=== PATIENT | male | born 1955 | race Caucasian/White ===

== ENCOUNTER 2022-10-04 15:48 | Outpatient (CLI) | payer MEDICARE, SELFPAY | END 2022-10-04 15:49 | disposition home or self-care (01) | PROVIDERS: PCP Family Medicine; Visit Provider Family Medicine | DX: E13.9 Other specified diabetes mellitus without complications (principal); I10 Essential (primary) hypertension; Z12.5 Encounter for screening for malignant neoplasm of prostate | CPT/HCPCS: 80053; 84153 ==

== ENCOUNTER 2023-04-19 15:31 | Outpatient (CLI) | payer MEDICARE, SELFPAY | END 2023-04-19 15:32 | disposition home or self-care (01) | LOC: LKVREF 15:32 | PROVIDERS: PCP Family Medicine; Visit Provider Family Medicine | DX: I10 Essential (primary) hypertension (principal) | CPT/HCPCS: 80048 ==

== ENCOUNTER 2023-06-29 13:10 | Emergency (ER) | payer MEDICARE, SELFPAY ==
[2023-06-29] VITALS (7 sets, daily range): BP systolic 123–169; BP diastolic 73–103; PULSE 74–79; RESP 12–20; TEMP 37.2; O2SAT 92–97; BMI 37.0
--- NOTE | 2023-06-29 14:01 | XR_ITS ---
Patient: KRANTHI KIM Facility:?[facility] Patient ID:?[id number] Site Patient ID:?[id number]. Site :?[id number] Study:?XRay-Chest 2 VIEW-06/29/2023 2:31:38 PM Ordering Physician:CADE Final Report: Indication: Shortness of breath. Technique: Two view(s) of the chest. Comparison: None available. Findings: Normal cardiomediastinal silhouette and pulmonary vasculature. Elevated left hemidiaphragm. No focal consolidation, pleural effusion or pneumothorax. No acute osseous abnormality. Chronic appearing anterior wedging of mid thoracic vertebral bodies. Impression: No acute cardiopulmonary abnormality identified. Dictated by Lashon Becerra MD @ 06/29/2023 2:47:03 PM Signed by:?Lashon Becerra MD @06/29/2023 2:47:03 PM (Electronic Signature)
[2023-06-29 14:05] LABS: Strep A DNA Probe* NOT DETECTED (Not Detectd)
[2023-06-29 14:16] LABS: PCR FLU A Negative PCR FLU A (Negative); PCR FLU B Negative PCR FLU B (Negative); PCR RSV Negative PCR RSV (Negative); SARS PCR* Negative SARS-CoV-2 (Negative)
--- NOTE | 2023-06-29 14:30 | ED_ITS ---
HPI - General Adult General Date Seen: 06/29/23 Chief complaint: Cough Stated complaint: Cold symptoms Time Seen by Provider: 06/29/23 13:21 Source: patient Mode of arrival: ambulatory Limitations: no limitations History of Present Illness HPI narrative: Patient is a 67-year-old male presenting for cold symptoms that started yesterday. States these include runny nose, cough, congestion. Has been taking ibuprofen cold medicine last took 3 hours ago. Has felt sweaty. Denies chest pain, fevers, chills, abdominal pain, nausea/vomiting, weakness, numbness, headaches, vision changes. Does state he feels slightly fatigued though. Did have family members around in the does have positive flu influenza 2 weeks ago. No other complaints at this time. States he does feel very mildly short of breath. No other concerns noted Related Data Home Medications Medication Instructions Recorded Confirmed aspirin 81 mg tablet,delayed 81 mg PO QDAY 04/19/23 06/29/23 release (Adult Aspirin Regimen) Previous Rx's Medication Instructions Recorded furosemide 20 mg tablet See Rx Instructions PO BID #180 10/04/22 tabs gabapentin 300 mg capsule 300 mg PO QHS #90 caps 10/04/22 glipizide 10 mg tablet, extended 10 mg PO QDAY #90 tabs 10/05/22 release 24 hr atorvastatin 20 mg tablet 20 mg PO QHS #90 tabs 11/04/22 blood sugar diagnostic (Accu-Chek #100 ea 11/04/22 Guide test strips) lisinopril 20 mg tablet 20 mg PO BID #180 tabs 11/04/22 metformin 500 mg tablet,extended 1,000 mg (2 x 500 mg) PO QDAY #180 11/04/22 release 24hr (osmotic) tabs spironolactone 25 mg tablet 25 mg PO BID #180 tabs 11/04/22 cyclobenzaprine 10 mg tablet 10 mg PO 3XD PRN for muscle spasm 03/07/23 #30 tabs gabapentin 100 mg capsule See Rx Instructions PO .ud #180 04/19/23 caps tamsulosin 0.4 mg capsule 0.4 mg PO QDAY #90 caps 04/19/23 Allergies Allergy/AdvReac Type Severity Reaction Status Date / Time No Known Drug Allergies Allergy Verified 06/29/23 13:22 Review of Systems Status of ROS: Reports: 10 or more systems reviewed and unremarkable except as noted in History and below [facility] Medical History Shingles ?B02.9 - Zoster without complications (ICD-10) Surgical History Status post nasal septoplasty ?Z98.890 - Other specified postprocedural states (ICD-10) Status post right inguinal hernia repair ?Z98.890 - Other specified postprocedural states (ICD-10) ?Z87.19 - Personal history of other diseases of the digestive system (ICD-10) Social History Little interest or pleasure in doing things: not at all Feeling down, depressed, or hopeless: not at all Exam Narrative: Exam Narrative: Const: Well-nourished, Well-developed, in mild distress Eyes: PERRL, no conjunctival injection, and symmetrical lids HENT: Atraumatic external nose and ears. Moist mucous membranes. Neck: Symmetric, trachea midline, No thyromegaly. CVS: RRR, No murmurs or gallops. Peripheral pulses 2+ and equal in all extremities RESP: Unlabored respiratory effort. Clear to auscultation bilaterally. GI: Nontender/Nondistended, No rebound or guarding. MSK:Extremities w/o deformity, Normal Active ROM Skin: Warm, Dry. No rashes or lesions. Neuro: Normal Muscle tone, No focal neurological deficits. Psych: Awake, Alert, & Oriented x3. Appropriate mood and affect. Const: Vital Signs, click to edit/add: Vital Signs - 24 hr 06/29/23 13:20 06/29/23 13:22 06/29/23 13:23 Temperature 99.0 F Pulse Rate 76 Pulse Rate [Pulse Oximeter] 76 Respiratory Rate 20 Blood Pressure 161/103 H Blood Pressure [Ri ght Upper Arm] 169/101 H Pulse Oximetry 95 93 Oxygen Delivery Me thod Room Air 06/29/23 13:23 Temperature Pulse Rate 77 Pulse Rate [Pulse Oximeter] Respiratory Rate Blood Pressure 135/80 Blood Pressure [Ri ght Upper Arm] Pulse Oximetry 93 Oxygen Delivery Me thod Course Vital Signs Vital signs: Initial Vital Signs Blood Pressure 161/103 H 06/29/23 13:20 Blood Pressure Mean 122 H 06/29/23 13:20 Vital Signs Blood Pressure 161/103 H 06/29/23 13:20 Temperature 99.0 F 06/29/23 13:23 Pulse Rate 76 06/29/23 13:23 Respiratory Rate 20 06/29/23 13:23 Blood Pressure 169/101 H 06/29/23 13:23 Pulse Oximetry 93 06/29/23 13:23 Oxygen Delivery Method Room Air 06/29/23 13:23 Medical Decision Making MDM Narrative Medical decision making narrative: Patient is 67-year-old male presenting what sounds like a viral respiratory symptoms. He is not having much shortness of breath or chest pain I do not believe this is related to PE. He is otherwise feeling well and do not believe a large workup is necessary. His vitals are non concerning. We will do a COVID/flu/RSV along with strep test and will also do a chest x-ray Swabs all came back negative. Chest x-ray reviewed by myself and the radiologist shows no concerning findings. His vital signs continue to be stable use doing well. He is safe for discharge and he is agreeable to this plan. This is most likely some kind of viral syndrome. Lab Data Labs: Lab Results 06/29/23 Range/Units 13:22 SARS-CoV-2 (PCR) Negative SARS-CoV-2 (Negative) Influenza Type A (PCR) Negative PCR FLU A (Negative) Influenza Type B (PCR) Negative PCR FLU B (Negative) RSV (PCR) Negative PCR RSV (Negative) Group A Strep DNA NOT DETECTED (Not Detectd) Imaging Data Chest x-ray: Attestation: I have reviewed the pertinent imaging results. Radiologist's impression: No acute cardiopulmonary abnormality identified. Dictated by Lashon Becerra MD @ 06/29/2023 2:47:03 PM Discharge Plan Discharge Clinical Impression: Upper respiratory infection Qualifiers: URI type: unspecified URI Qualified Code(s): J06.9 - Acute upper respiratory infection, unspecified Patient Disposition: Home, Self-Care Condition: Stable Instructions: Viral Syndrome (ED) Additional Instructions: Take Tylenol and ibuprofen for headache. Symptoms may persist for a week or 2. Return to emergency department for new or worsening symptoms Prescriptions: No Action atorvastatin 20 mg tablet 20 mg PO QHS Qty: 90 3RF spironolactone 25 mg tablet 25 mg PO BID Qty: 180 3RF lisinopril 20 mg tablet 20 mg PO BID Qty: 180 3RF metformin 500 mg tablet extended release 24hr 1,000 mg PO QDAY Qty: 180 3RF (DME) Accu-Chek Guide test strips Strip See Rx Instructions .Route Qty: 100 6RF Rx Instructions: To test blood sugars once daily furosemide 20 mg tablet See Rx Instructions PO BID Qty: 180 3RF Rx Instructions: 20 mg QAM and Q midday orally twice a day; gabapentin 300 mg capsule 300 mg PO QHS Qty: 90 3RF aspirin [Adult Aspirin Regimen] 81 mg tablet,delayed release (DR/EC) 81 mg PO QDAY tamsulosin 0.4 mg capsule 0.4 mg PO QDAY Qty: 90 3RF gabapentin 100 mg capsule See Rx Instructions PO .ud Qty: 180 3RF Rx Instructions: 100 mg QAM and Qmid orally UD; glipizide 10 mg tablet extended release 24hr 10 mg PO QDAY Qty: 90 3RF Rx Instructions: this with breakfast in the morning. cyclobenzaprine 10 mg tablet 10 mg PO 3XD PRN (Reason: for muscle spasm) Qty: 30 2RF Follow Up/Referrals: Pito Friedman MD [Primary Care Provider] - Stand Alone Forms: [employer] Info Instructions
== END 2023-06-29 15:10 | disposition home or self-care (01) ==
PROVIDERS: Emergency Provider Student in an Organized Health Care Education/Training Program; PCP Family Medicine
DX: J06.9 Acute upper respiratory infection, unspecified (principal)
CPT/HCPCS: 71046; 87631; 87651; 99282; 99283

== ENCOUNTER 2023-08-02 08:08 | Outpatient (CLI) | payer MEDICARE, SELFPAY | END 2023-08-02 08:09 | disposition home or self-care (01) | LOC: NFLDREF 08-04 11:00 | PROVIDERS: PCP Family Medicine; Referring Provider Family Medicine; Visit Provider Family Medicine | DX: E78.5 Hyperlipidemia, unspecified (principal); I10 Essential (primary) hypertension; R53.83 Other fatigue; Z13.29 Encounter for screening for other suspected endocrine disorder | CPT/HCPCS: 80048; 80061; 83520; 84403; 84443 ==